=== PATIENT | male | born 1955 | race Caucasian/White ===

== ENCOUNTER 2017-02-08 13:53 | Emergency (ER) | payer MEDICARE, MEDICAID ==
[2017-02-08 14:02] VITALS: BP 119/83
[2017-02-08] MEDS ORDERED: IBUPROFEN 600 MG TABLET PO ONE (14:36)
[2017-02-08] MEDS ORDERED: GUAIFENESIN 600 MG TABLET.SA PO ONE (14:36)
[2017-02-08] MEDS ORDERED: LORATADINE 10 MG TABLET PO ONE (14:36)
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
== END 2017-02-08 15:02 | disposition home or self-care (01) ==
LOC: ER 13:53
DX: J06.9 Acute upper respiratory infection, unspecified (principal); R09.81 Nasal congestion; R09.82 Postnasal drip; R05 Cough; M54.5 Low back pain; G89.29 Other chronic pain; F03.90 Unspecified dementia, unspecified severity, without behavioral disturbance, psychotic disturbance, mood disturbance, and anxiety
CPT/HCPCS: 99283; A9270 ×3

== ENCOUNTER 2018-12-01 12:33 | Emergency (ER) | payer MEDICARE, MEDICAID ==
[2018-12-01 15:07] LABS: ABSOLUTE LYMPHOCYTES (AUTO) 1.2 10^3/uL (0.5-4.7); ABSOLUTE MONOCYTES (AUTO) 0.7 10^3/uL (0.1-1.4); ABSOLUTE NEUT (AUTO) 5.8 10^3/uL (1.7-8.2); BASOPHILS % (AUTO) 0.5 % (0-2); EOSINOPHILS % (AUTO) 0.4 % (0-6); HEMATOCRIT 40.7 % (37.9-51.0); HEMOGLOBIN 13.9 g/dL (13.5-17.0); LYMPHOCYTES % (AUTO) 15.5 % (13-45); MEAN CORPUSCULAR HEMOGLOBIN 30.5 pg (27.0-33.4); MEAN CORPUSCULAR HGB CONC 34.2 g/dL (32.0-36.0); MEAN CORPUSCULAR VOLUME 89 fl (80-97); MONOCYTES % (AUTO) 9.4 % (3-13); PLATELET COUNT 263 10^3/uL (150-450); RED BLOOD COUNT 4.57 10^6/uL (4.35-5.55); RED CELL DISTRIBUTION WIDTH 13.7 % (11.5-14.0); SEGMENTED NEUTROPHILS % (AUTO) 74.2 % (42-78); TOTAL CELLS COUNTED % (AUTO) 100 %; WHITE BLOOD COUNT 7.8 10^3/uL (4.0-10.5)
[2018-12-01 15:22] LABS: ALBUMIN 4.1 g/dL (3.5-5.0); ALKALINE PHOSPHATASE 122 U/L (38-126); ANION GAP 10 (5-19); ASPARTATE AMINO TRANSFERASE 66 U/L (17-59); BILIRUBIN,DIRECT 0.3 mg/dL (0.0-0.4); BILIRUBIN,TOTAL 0.8 mg/dL (0.2-1.3); BLOOD UREA NITROGEN 13 mg/dL (7-20); CALCIUM 9.5 mg/dL (8.4-10.2); CARBON DIOXIDE 26 mmol/L (22-30); CHLORIDE 103 mmol/L (98-107); GLUCOSE 123 mg/dL (75-110); TOTAL PROTEIN 6.9 g/dL (6.3-8.2)
[2018-12-01 15:23] LABS: ACETAMINOPHEN < 10 ug/mL (10-30); ALCOHOL < 10 mg/dL (NONE DETECTED); SALICYLATE < 1.0 mg/dL (2.0-20.0)
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
[2018-12-01 16:43] LABS: APPEARANCE,URINE CLOUDY; BILIRUBIN,URINE NEGATIVE (NEGATIVE); GLUCOSE, URINE 50 mg/dL (NEGATIVE); KETONES,URINE TRACE mg/dL (NEGATIVE); LEUKOCYTE ESTERASE,URINE NEGATIVE (NEGATIVE); NITRITE,URINE NEGATIVE (NEGATIVE); PROTEIN,URINE 30 mg/dL (NEGATIVE); URINE SPECIFIC GRAVITY 1.025
[2018-12-01 16:44] LABS: COLOR,URINE YELLOW
[2018-12-01 16:55] LABS: URINE AMPHETAMINES SCREEN NEGATIVE; URINE BARBITURATES SCREEN NEGATIVE; URINE BENZODIAZEPINES SCREEN NEGATIVE; URINE COCAINE SCREEN NEGATIVE; URINE MARIJUANA (THC) SCREEN NEGATIVE; URINE METHADONE SCREEN NEGATIVE; URINE PHENCYCLIDINE SCREEN NEGATIVE
--- NOTE | 2018-12-01 17:36 | EKG REPORT ---
SEVERITY:- NORMAL ECG - SINUS RHYTHM : Confirmed by: Sharda Bullock MD 01-Dec-2018 17:34:30
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
[2018-12-01] MEDS: LITHIUM CARBONATE 450 MG TABLET.ER PO SCH (18:42)
[2018-12-01] MEDS: LURASIDONE HCL 60 MG TABLET PO SCH (18:42)
[2018-12-02 06:16] VITALS: BP 138/77
[2018-12-02] MEDS: LURASIDONE HCL 60 MG TABLET PO SCH (09:59)
[2018-12-02] MEDS: LITHIUM CARBONATE 450 MG TABLET.ER PO SCH (09:59)
--- NOTE | 2018-12-02 10:26 | ER Document Report ---
Doctor's Note Notes: 12/02/18 10:25 Rounds: Chart reviewed and patient interviewed. Patient is being evaluated for bipolar disorder, not taking medications. He seems to be very pleasant and cooperative and I can understand more what he saying today than yesterday. Vital signs are all essentially normal. Lab studies were normal except no li thium detected in his body. He has been restarted on his medications. Patient appears to be medically stable for transfer or discharge. Stephen Green MD 12/02/18 18:27 Received word the patient will be able to go to [facility] at 7 PM this evening.
--- NOTE | 2018-12-04 11:39 | PSYCHOLOGICAL NOTE ---
Psych Note - Psych Note Date seen by psych provider: 12/02/18 Time seen by psych provider: 08:00 Psych Note: Reason for Consult:Bizarre, confusion, Hx Bipolar, said needed psych doesn't feel well. Check in with patient: Patient reports that a worker from [employer] brought him to [facility] because he needs to get help "I have nowhere to live, I live in a tent and there is yellow jackets and copper heads." He reports that he does have a history of bipolar disorder and takes medications. Patient states that he has an outpatient mental health provider through [facility] back in [facility] where he used to live. He reports he took the [employer] to the local area but states that he does not know why he came here. Clinician notes at this point patient started crying. Clinician spoke with patient's sister who confirmed that she has been trying to assist the patient with housing. She states that he was staying in a place in [place] however 1 of the other residents of the custodial became ill and the family moved him out into hospice unexpectedly. She reports that the patient had difficulty handling this and just seemed to walk away. She reports that when their mother and father he did the same thing. "He has a lot of grief." she reports that when he is off his medication he gets like this. She continued to disclose that he becomes verbally aggressive and cusses which is not his normal baseline. She continued to report that she has spoken to a new place in [place] that is going to be opening up however she is still working through the process with them of getting him admitted. She has confirmed that he cannot return back to his previous place because they have filled his slot with someone new. She discloses that she hopes the patient will go voluntarily to place to ensure stabilization on medication so the new placement will not follow through. Behavior health team contacted [facility]. They confirm they have a bed for the patient and with reserve it for him. Diagnosis: Bipolar Medication recommendations made by the psychiatric medication provider, Dr. Indu MD., includes: Request Bennet Level Add Bennet 450MG daily for mood stabilization Add Latuda 60MG daily for mood stabilization/psychosis Impression/Plan: Patient is recommended for rescind of IVC and is cleared from acute psychiatric services. He has a Hx of Bipolar with noncompliance with medication and per sister since October 2018 he has been unstable after a friend . Patient was restarted on medication and is currently presenting organized and linear. Conversation speech is within normal rate tone and prosody. Patient is very polite and is not using any aggressive or inappropriate conversations; family identifies when patient is unstable he will be verbally aggressive and will cuss. Patient does become tearful when discussing reasons he came to [place]. This is an direct correlation with his grief of his friend passing away. While patient does not meet IVC criteria, patient expresses wanting to do voluntary. Therapeutically this would benefit the patient to provide a higher probability of the patient continuing medication after discharge. The behavioral health team contacted [facility] and has been able to reserve a bed for the patient. Patient reports he would like to go there and is highly encouraged to follow through with this voluntary placement. Consulted with Dr. Kline regarding the management and care of patient. ED Physician in agreement with recommendations.
== END 2018-12-02 19:00 | disposition home or self-care (01) ==
LOC: ER 12:33
DX: F31.9 Bipolar disorder, unspecified (principal); F17.200 Nicotine dependence, unspecified, uncomplicated
CPT/HCPCS: 93005; 99285; 36415; 80307 ×4; 80178; 85025; 80053; 81001; 93010; J3490 ×2

== ENCOUNTER 2018-12-10 05:50 | Emergency (ER) | payer MEDICARE, MEDICAID ==
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
[2018-12-10 07:36] VITALS: BP 112/78
== END 2018-12-10 07:36 | disposition home or self-care (01) ==
LOC: ER 05:50
DX: L08.9 Local infection of the skin and subcutaneous tissue, unspecified (principal); E03.9 Hypothyroidism, unspecified; Z90.49 Acquired absence of other specified parts of digestive tract
CPT/HCPCS: 99283